=== PATIENT | female | born 1960 | race Caucasian/White ===

== ENCOUNTER 2017-02-13 08:27 | Day surgery (SDC) | payer BC ==
[2017-02-13 09:56] LABS: PARTIAL THROMBOPLASTIN TIME 26.9 SEC (23.5-35.8)
[2017-02-13] MEDS ORDERED: LIDOCAINE 1% INJ-PF (10 MG/ML) 30 ML SDV ONE (10:30)
--- NOTE | 2017-02-13 13:52 | RADIOLOGY REPORT (SQ) ---
EXAM DESCRIPTION: CT LUMBAR SPINE WITH; MYELOGRAM LUMBAR COMPLETED DATE/TIME: 02/13/2017 12:53 pm; 02/13/2017 12:37 pm REASON FOR STUDY: RADICULOPATHY LUMBAR REGION M54.16 RADICULOPATHY, LUMBAR REGION COMPARISON: MRI lumbar spine 06/02/2013,[facility] FLUOROSCOPY TIME: 1 minutes 24 seconds TECHNIQUE: Fluoroscopic guided lumbar myelogram. LIMITATIONS: None. PROCEDURE: After written consent and assessment were obtained, the patient was brought into the fluo roscopy room and placed prone on the table. The patient's lower back was prepped in a sterile fashio n and an entry site was selected under live fluoroscopic guidance, right paracentral L3-4. The entry site was anesthetized with 3 mL of 1% lidocaine. 22 gauge spinal needle was used at the right parac entral L3-4 level. We were unable to access the lumbar subarachnoid space. Ossification of the liga mentum flavum at this level by CT. The right paracentral L4-5 level was localized under fluoroscopy. Site marked. Skin prepped again w ith Betadine, and draped in sterile fashion. Entry site was anesthetized with 3 mL of 1% lidocaine. A 25 gauge spinal needle was advanced through the skin and into the thecal sac at the right paracent ral L4-5 level. Contrast was injected into the thecal sac. Following the procedure the needle was r emoved and a sterile bandage was placed of the site. CONTRAST: 10 mL Isovue M 200 IMAGES ACQUIRED: Cross-table lateral, supine prone and erect oblique, upright lateral flexion and ext ension images. TECHNIQUE: After performing lumbar myelogram, axial images were acquired through the lumbar spine wi thout intravenous contrast. Patient was scanned in the prone and supine orientations. Images review ed with lung, soft tissue and bone windows. Reconstructed coronal and sagittal MPR images reviewed. All images stored on PACS. All CT scanners at this facility use dose modulation, iterative reconstruction, and/or weight based d osing when appropriate to reduce radiation dose to as low as reasonably achievable (ALARA). [facility]: Dose Right [facility]: CareDose [facility]: Dose Right [facility]: Teradose 4D [facility]: [employer] FINDINGS: Digital fluoroscopic images: Prone cross-table lumbar film demonstrates no ventral epidural defects at the lumbar disc levels. No myelographic block in the lumbar or lower thoracic spine is identified. At myelography, symmetric filling of the bilateral L4, bilateral L5, and bilateral S1 nerve roots is seen. No instability on upright flexion/extension views. CT images: DISCS: T8-9: No central or foraminal stenosis. Very mild facet hypertrophy bilaterally. T9-10: There is some streak artifact from a Melendez rian hardware. No central or foraminal stenos is. Bony spurring at the T9-10 facet joints with bony incorporation around Melendez rian anchors. T10-11: No central or foraminal stenosis T11-12: There is a 25 to 50% anterior chronic wedge compression at T11. No retropulsion of bony fra gments to cause central stenosis. No T11-12 disc bulging or significant facet hypertrophy. No centr al or foraminal stenosis. T12-L1: No central or foraminal stenosis L1-L2: No central or foraminal stenosis. L2-L3: There is streak artifact at the L2-3 level related to Melendez rian anchors. There is some f acet hypertrophy and bony overgrowth incorporating the Melendez rian anchors. No central or foramin al stenosis. L3-L4: Ligamentum flavum thickening and mild ossification. Mild posterior disc bulging. Mild bilate ral foraminal narrowing from disc bulge and ligamentum flavum thickening. No definite exiting L3 ner ve root impingement. Symmetric filling of the bilateral L3 nerve roots on coronal image 20. L4-L5: No significant posterior disc bulging. Mild bilateral facet and ligament hypertrophy. No tere tral or foraminal stenosis. Symmetric bilateral L4 nerve root sleeve filling on coronal image 19. L5-S1: No central or foraminal stenosis. Moderate facet arthropathy left L5-S1 facet joint. Symmetr ic filling of the proximal L5 and proximal S1 nerve roots on coronal reconstructions. VISUALIZED RIBS: No fractures. SOFT TISSUES: Left-sided intrarenal nonobstructive calculi less than 5 mm in size. No left hydroneph rosis. SEGMENTATION: Normal. No transitional anatomy. ALIGNMENT: Normal. Lumbar VERTEBRAL BODIES: No fractures. No dislocation. No acute findings. 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 OTHER: No other significant finding. IMPRESSION: No high-grade central or foraminal stenosis as above. No lumbar nerve root impingement. COMMENT: Patient medication list reviewed: Yes- Quality ID# [id number]:Eligible professional attests to doc umenting in the medical record they obtained, updated, or reviewed the patient's current medications. TECHNICAL DOCUMENTATION: JOB ID: [id number] Quality ID # [id number]: Final reports with documentation of one or more dose reduction techniques (e.g., Au tomated exposure control, adjustment of the mA and/or kV according to patient size, use of iterative reconstruction technique) 2010 [employer]- All Rights Reserved
[2017-02-13 15:46] VITALS: BP 141/91
== END 2017-02-13 14:35 | disposition home or self-care (01) ==
LOC: RAD 08:27
PROVIDERS: ATTEND Specialist
PROC: B01BYZZ Fluoroscopy of Spinal Cord using Other Contrast (ICD-10-PCS; principal; 2017-02-13)
DX: M54.16 Radiculopathy, lumbar region (principal)
CPT/HCPCS: 36415; 85610; 85730; 72265; 72132; J3490

== ENCOUNTER → 2020-05-10 | Outpatient (CLI) | payer BC ==
--- NOTE | 2020-05-10 15:20 | WOMENS IMAGING REPORT ---
EXAM DESCRIPTION: BILAT SCREENING MAMMO W/CAD IMAGES COMPLETED DATE/TIME: 05/10/2020 2:55 pm REASON FOR STUDY: Z12.31 ENCNTR SCREEN MAMMOGRAM FOR MALIGNANT NEOPLASM OF BREAST Z12.31 ENCNTR SCR EEN MAMMOGRAM FOR MALIGNANT NEOPLASM OF AMY COMPARISON: None. EXAM PARAMETERS: Standard craniocaudal and mediolateral oblique views of each breast recorded using digital acquisition. Read with the assistance of CAD. .[facility] [employer] Version 9.2 LIMITATIONS: None. FINDINGS: No suspicious masses, suspicious calcifications or architectural distortion. No areas of c oncern. IMPRESSION: NEGATIVE MAMMOGRAM. BIRADS 1 BREAST DENSITY: b. There are scattered areas of fibroglandular density. BIRAD: ASSESSMENT: 1 NEGATIVE RECOMMENDATION: ROUTINE SCREENING COMMENT: The patient has been notified of the results by letter per MQSA requirements. Additional no tification policies are in place for contacting patient with suspicious or incomplete findings. Quality ID #[id number]: [employer] recommends an annual screening mammogram for women aged 40 years or over. This facility utilizes a reminder system to ensure that all patients receive reminder letters, and/or direct phone calls for appointments. This includes reminders for routine scr eening mammograms, diagnostic mammograms, or other Breast Imaging Interventions when appropriate. Th is patient will be placed in the appropriate reminder system. TECHNICAL DOCUMENTATION: FINDING NUMBER: (1) ASSESSMENT: (1) JOB ID: [id number] 2010 [employer]- All Rights Reserved Reading location - IP/workstation name: [email or web address]
== END ==
LOC: WI 14:38
PROVIDERS: ATTEND Nurse Practitioner Family
DX: Z12.31 Encounter for screening mammogram for malignant neoplasm of breast (principal)
CPT/HCPCS: 77067